=== PATIENT | female | born 1945 | race Caucasian/White ===

== ENCOUNTER 2019-07-20 09:07 | Inpatient (IN) ==
[2019-07-20 09:37] LABS: URINE SOURCE CLEAN CATCH
[2019-07-20 09:41] LABS: BASO# 0.02 X1000 (0.0-0.2); BASO% 0.1 % (0.0-0.8); EOS# 0.02 X1000 (0.0-0.7); EOS% 0.1 % (0.0-10.0); HEMATOCRIT 40.8 % (37.0-47.0); HEMOGLOBIN 12.5 g/dL (12.0-16.0); IMM GRAN# 0.07 X1000 (0.0-0.04); IMM GRAN% 0.4 % (0.0-0.5); LYMPH# 0.87 X1000 (1.2-3.4); LYMPH% 4.4 % (20.5-51.1); MCH 25.2 PG (27-31); MCHC 30.6 g/dL (33-37); MCV 82.3 FL (81-99); MONO% 4.6 % (1.7-9.3); NEUT% 90.4 % (42.2-75.2); PLT 451 X1000 (130-400); RBC 4.96 XMIL (4.2-5.4); RDW 13.4 % (11.5-14.5); WBC 19.78 X1000 (4.8-10.8)
[2019-07-20 09:49] LABS: BILIRUBIN URINE NEGATIVE (NEGATIVE); BLOOD URINE MODERATE (NEGATIVE); COLOR ORANGE; GLUCOSE URINE NEGATIVE (NEGATIVE); KETONE URINE TRACE mg/dL (NEGATIVE); LEUKOCYTES URINE LARGE (NEGATIVE); NITRITE URINE POSITIVE (NEGATIVE); PROTEIN URINE 50 mg/dL (NEGATIVE); SP GRAVITY URINE 1.028; TURBIDITY URINE TURBID (CLEAR); UROBILINOGEN URINE 3 mg/dL (NORMAL)
[2019-07-20 09:56] LABS: UR EPITHELIAL CELLS <10 /HPF (<10); URINE BACTERIA 4+ /HPF; URINE WBC TNTC /HPF (<10)
[2019-07-20 09:58] LABS: AGAP 16; ALB/GLOB RATIO 1.3; ALBUMIN 3.5 g/dL (3.5-5.0); ALKALINE PHOSPHATASE 131 U/L (32-104); BUN 21 mg/dL (8-22); CALCIUM 8.7 mg/dL (8.8-10.2); CHLORIDE 90 mmol/L (98-107); COSMO 277; CREATININE 0.8 mg/dL (0.5-0.9); ESTIMATED GFR > 60; GLUCOSE 138 mg/dL (70-104); GOT 17 U/L (10-30); GPT 8 U/L (10-36); LIPASE 10 U/L (13-60); POTASSIUM 3.1 mmol/L (3.5-5.1); SODIUM 136 mmol/L (136-145); TCO2 30 mmol/L (25-35); TOTAL BILIRUBIN 0.41 mg/dL (0.20-1.00); TOTAL PROTEIN 6.3 g/dL (6.3-8.3)
[2019-07-20 23:55] LABS: BASO# 0.03 X1000 (0.0-0.2); BASO% 0.2 % (0.0-0.8); EOS# 0.11 X1000 (0.0-0.7); EOS% 0.7 % (0.0-10.0); HEMATOCRIT 37.6 % (37.0-47.0); HEMOGLOBIN 11.3 g/dL (12.0-16.0); IMM GRAN# 0.07 X1000 (0.0-0.04); IMM GRAN% 0.4 % (0.0-0.5); LYMPH# 1.83 X1000 (1.2-3.4); LYMPH% 11.5 % (20.5-51.1); MCH 25.1 PG (27-31); MCHC 30.1 g/dL (33-37); MCV 83.6 FL (81-99); MONO# 1.15 X1000 (0.11-0.59); MONO% 7.2 % (1.7-9.3); MPV 9.1 FL (7.4-10.4); NEUT# 12.68 X1000 (1.4-6.5); PLT 399 X1000 (130-400); RDW 13.6 % (11.5-14.5); WBC 15.87 X1000 (4.8-10.8)
[2019-07-20 23:59] LABS: INR 1.16
[2019-07-21] LABS: PTT 33.7 Seconds (22.3-41.8)
[2019-07-21 00:22] LABS: AGAP 13; ALB/GLOB RATIO 1.2; ALBUMIN 2.9 g/dL (3.5-5.0); ALKALINE PHOSPHATASE 110 U/L (32-104); BUN 15 mg/dL (8-22); CALCIUM 8.1 mg/dL (8.8-10.2); CHLORIDE 98 mmol/L (98-107); CK PROFILE 88 U/L (24-173); COSMO 277; CREATININE 0.6 mg/dL (0.5-0.9); ESTIMATED GFR > 60; GLUCOSE 104 mg/dL (70-104); GOT 13 U/L (10-30); GPT 7 U/L (10-36); POTASSIUM 3.7 mmol/L (3.5-5.1); SODIUM 138 mmol/L (136-145); TCO2 27 mmol/L (25-35); TOTAL BILIRUBIN 0.47 mg/dL (0.20-1.00); TOTAL PROTEIN 5.3 g/dL (6.3-8.3)
[2019-07-21 06:04] LABS: BASO# 0.03 X1000 (0.0-0.2); BASO% 0.2 % (0.0-0.8); EOS# 0.13 X1000 (0.0-0.7); HEMATOCRIT 37.2 % (37.0-47.0); HEMOGLOBIN 11.1 g/dL (12.0-16.0); IMM GRAN# 0.05 X1000 (0.0-0.04); IMM GRAN% 0.4 % (0.0-0.5); LYMPH# 1.51 X1000 (1.2-3.4); LYMPH% 11.7 % (20.5-51.1); MCH 25.1 PG (27-31); MCHC 29.8 g/dL (33-37); MCV 84.2 FL (81-99); MONO% 6.9 % (1.7-9.3); MPV 9.8 FL (7.4-10.4); NEUT# 10.34 X1000 (1.4-6.5); NEUT% 79.8 % (42.2-75.2); PLT 400 X1000 (130-400); RBC 4.42 XMIL (4.2-5.4); RDW 13.5 % (11.5-14.5); WBC 12.96 X1000 (4.8-10.8)
[2019-07-21 06:15] LABS: AGAP 14; BUN 13 mg/dL (8-22); CALCIUM 8.3 mg/dL (8.8-10.2); CHLORIDE 99 mmol/L (98-107); COSMO 279; CREATININE 0.6 mg/dL (0.5-0.9); ESTIMATED GFR > 60; GLUCOSE 92 mg/dL (70-104); POTASSIUM 3.6 mmol/L (3.5-5.1); SODIUM 140 mmol/L (136-145); TCO2 27 mmol/L (25-35)
[2019-07-22 07:16] LABS: BASO# 0.02 X1000 (0.0-0.2); BASO% 0.2 % (0.0-0.8); EOS# 0.09 X1000 (0.0-0.7); EOS% 0.9 % (0.0-10.0); HEMATOCRIT 33.2 % (37.0-47.0); HEMOGLOBIN 9.8 g/dL (12.0-16.0); IMM GRAN# 0.05 X1000 (0.0-0.04); IMM GRAN% 0.5 % (0.0-0.5); LYMPH% 7.7 % (20.5-51.1); MCH 24.7 PG (27-31); MCHC 29.5 g/dL (33-37); MCV 83.6 FL (81-99); MONO# 0.65 X1000 (0.11-0.59); MONO% 6.2 % (1.7-9.3); MPV 9.3 FL (7.4-10.4); NEUT# 8.84 X1000 (1.4-6.5); NEUT% 84.5 % (42.2-75.2); PLT 371 X1000 (130-400); RBC 3.97 XMIL (4.2-5.4); RDW 13.1 % (11.5-14.5); WBC 10.45 X1000 (4.8-10.8)
[2019-07-22 07:55] LABS: AGAP 12; BUN 8 mg/dL (8-22); CALCIUM 8.2 mg/dL (8.8-10.2); CHLORIDE 100 mmol/L (98-107); COSMO 274; CREATININE 0.6 mg/dL (0.5-0.9); GLUCOSE 91 mg/dL (70-104); POTASSIUM 3.1 mmol/L (3.5-5.1); SODIUM 138 mmol/L (136-145); TCO2 26 mmol/L (25-35)
[2019-07-23 07:24] VITALS: BP 170/84
[2019-07-23 07:26] LABS: HEMATOCRIT 34.4 % (37.0-47.0); HEMOGLOBIN 10.6 g/dL (12.0-16.0); MCH 25.7 PG (27-31); MCHC 30.8 g/dL (33-37); MCV 83.3 FL (81-99); MPV 9.4 FL (7.4-10.4); RBC 4.13 XMIL (4.2-5.4); RDW 13.4 % (11.5-14.5); WBC 10.04 X1000 (4.8-10.8)
[2019-07-23 07:45] LABS: AGAP 14; BUN 4 mg/dL (8-22); CALCIUM 8.3 mg/dL (8.8-10.2); CHLORIDE 99 mmol/L (98-107); COSMO 277; CREATININE 0.5 mg/dL (0.5-0.9); ESTIMATED GFR > 60; GLUCOSE 106 mg/dL (70-104); POTASSIUM 3.1 mmol/L (3.5-5.1); SODIUM 140 mmol/L (136-145); TCO2 27 mmol/L (25-35)
== END 2019-07-23 13:19 | disposition home or self-care (01) | DRG 392 ==
LOC: ED 09:07 → 4N 13:06
PROVIDERS: ATTEND Internal Medicine